=== PATIENT | male | born 1940 | race Caucasian/White ===

== ENCOUNTER 2021-05-28 08:26 | Emergency (ER) | payer BC, MEDICARE ==
--- NOTE | 2021-05-28 08:40 | EDM.PDOC ---
ED HPI GENERAL MEDICAL PROBLEM - General Chief Complaint: Headache Stated Complaint: COVID? Time Seen by Provider: 05/28/21 08:40 Source of Information: Reports: Patient History Limitations: Reports: No Limitations - History of Present Illness INITIAL COMMENTS - FREE TEXT/NARRATIVE: Jarrell, 81-year-old male, presents unaccompanied to the emergency department for screening and treatment of COVID-19. Acknowledges Non-vaccinated status for Covid-19. His was tested confirmed positive last to which he has had direct exposure prior to and since then. He states she presented to the emergency department for evaluation and received monoclonal antibody treatment. This morning she called to the hospital stating her was worse than she was and that he was on his way in for evaluation and treatment. Jarrell states that he been feeling well up until last night when he started to develop some congestion runny nose, accompanied by a headache which has persisted/worsened with no other symptoms since onset. He denies shortness of breath or chest pain. Has had no change in bowel nor bladder. Was able to take his medications this morning and is experience no sequela that limited him presenting to the department by private vehicle unaccompanied. Jarrell is a [facility] patient, thus there are no records available to us. He denies any other contributing factors other than the positive exposure and risk for that. Onset Date: 05/27/21 Onset Time: 18:00 Duration: Hour(s):, Getting Worse Location: Reports: Head, Face Quality: Reports: Pressure Severity: Moderate Improves with: Reports: None Worsens with: Reports: Movement Context: Reports: Sick Contact Associated Symptoms: Reports: Headaches, Loss of Appetite. Denies: Confusion, Chest Pain, cough w sputum Headache Pain Score (Numeric/FACES): 5 - Related Data Allergies Allergy/AdvReac Type Severity Reaction Status Date / Time meperidine HCl [From Demerol] Allergy Dizziness Verified 05/28/21 09:04 Home Meds: Home Meds Olmesartan Medoxomil 20 mg PO DAILY 05/28/21 [History] atorvaSTATin Calcium [Atorvastatin Calcium] 10 mg pe PO DAILY 05/28/21 [History] Past Medical History HEENT History: Reports: Impaired Vision Cardiovascular History: Reports: Hypertension Respiratory History: Reports: None Musculoskeletal History: Reports: Arthritis, Neck Pain, Chronic, Other (See Below) Other Musculoskeletal History: 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, stenosis Neurological History: Reports: Headaches, Chronic Psychiatric History: Reports: None Endocrine/Metabolic History: Reports: None Oncologic (Cancer) History: Reports: Basal Cell Carcinoma Dermatologic History: Reports: Other (See Below) Other Dermatologic History: basal cell skin removal - Infectious Disease History Infectious Disease History: Reports: Chicken Pox, Measles, Mumps - Past Surgical History HEENT Surgical History: Reports: Tonsillectomy, Other (See Below) (Large mass removed Left neck) Social & Family History - Family History Family Medical History: No Pertinent Family History ED ROS GENERAL - Review of Systems Review Of Systems: See Below Constitutional: Reports: Malaise HEENT: Reports: No Symptoms Respiratory: Reports: No Symptoms Cardiovascular: Reports: No Symptoms Endocrine: Reports: No Symptoms GI/Abdominal: Reports: No Symptoms : Reports: No Symptoms Musculoskeletal: Reports: Neck Pain Skin: Reports: No Symptoms Neurological: Reports: No Symptoms Psychiatric: Reports: No Symptoms Hematologic/Lymphatic: Reports: No Symptoms Immunologic: Reports: No Symptoms ED EXAM, GENERAL - Physical Exam Exam: See Below Free Text/Narrative:: Alert, oriented, in no acute distress. There is no evidence of cyanosis nor pallor. HEENT is negative the discharge nor deformity. PERRLA no icterus no injection EOM intact. Not truly light sensitive. Mild cerumen in the canals with no obstruction no evidence of tympanic membrane involvement. [place] moist mucous membranes nasal and oral with no erythema nor exudate noted. Neck is soft supple no rigidity, no lymphadenopathy, there is no carotid bruit auscultated bilateral assessment. There is a scar to the left lateral neck from where the shoe states mass had been removed. Thorax is clear mildly diminished more so left base than right with no wheezes nor crackles. Cardiac is S1-S2 I do not appreciate any murmur. Abdomen is soft bowel sounds are present no tenderness is noted. No flank pain is noted. Motion of the extremities is intact negative calf tenderness to Homans sign maneuvering There is no edema present. rectal deferred. #1 Interpretation EKG Date: 05/28/21 Time: 09:02 Rhythm: NSR Rate (Beats/Min): 84 [place]: Normal (no comparison available) P-Wave: Present QRS: Normal ST-T: Normal QT: Normal Comparison: NA - No Prior EKG Course - Vital Signs Last Recorded V/S: Last Vital Signs Temp 98.4 F 05/28/21 10:00 Pulse 82 05/28/21 10:30 Resp 18 05/28/21 10:30 BP 152/88 H 05/28/21 10:30 Pulse Ox 97 05/28/21 10:30 - Orders/Labs/Meds Orders: Active Orders 24 hr Category Date Time Status Peripheral IV Care [RC] . DIRECTED Care 05/28/21 08:48 Active Sodium Chloride 0.9% [Saline Flush] Med 05/28/21 08:47 Active 10 ml FLUSH Q8HR PRN Peripheral IV Insertion Adult [OM.PC] Stat Oth 05/28/21 08:48 Ordered EKG 12 Lead [EK] Stat Ther 05/28/21 08:48 Ordered Medication Orders Sodium Chloride (Sodium Chloride 0.9% 10 Ml Syringe) 10 ml FLUSH Q8HR PRN PRN Reason: keep vein open Labs: Laboratory Tests 05/28/21 05/28/21 05/28/21 Range/Units 08:38 09:20 09:20 WBC 5.10 (5.00-10.00) 10^3/uL RBC 4.70 (4.50-6.00) 10^6/uL Hgb 14.4 (13.0-17.0) g/dL Hct 42.1 (40.0-52.0) % MCV 89.6 (82.0-92.0) fL MCH 30.6 (27.0-31.0) pg MCHC 34.2 (32.0-36.0) g/dL RDW 12.6 (11.5-14.5) % Plt Count 185 (150-400) 10^3/uL MPV 9.8 (7.4-10.4) fL Immature Gran % (Auto) 0.2 (0.0-5.0) % Neut % (Auto) 76.8 H (50.0-70.0) % Lymph % (Auto) 6.5 L (20.0-40.0) % [place] % (Auto) 14.7 H (2.0-8.0) % Eos % (Auto) 1.4 (1.0-3.0) % Baso % (Auto) 0.4 (0.0-1.0) % Neut # (Auto) 3.92 (2.50-7.00) 10^3/uL Lymph # (Auto) 0.33 L (1.00-4.00) 10^3/uL [place] # (Auto) 0.75 (0.10-0.80) 10^3/uL Eos # (Auto) 0.07 L (0.10-0.30) 10^3/uL Baso # (Auto) 0.02 (0.00-0.10) 10^3/uL Immature Gran # (Auto) 0.01 (0.00-0.50) 10^3/uL D-Dimer, Quantitative 262 (<400) ng/mL Sodium (136-145) mmol/L Potassium (3.5-5.1) mmol/L Chloride (98-107) mmol/L Carbon Dioxide (21.0-32.0) mmol/L Anion Gap (5-15) mmol/L BUN (7-18) mg/dL Creatinine (0.51-1.17) mg/dL Est Cr Clr Drug Dosing mL/min Estimated GFR (MDRD) mL/min Glucose (70-140) mg/dL Lactic Acid (0.4-2.0) mmol/L Calcium (8.7-10.3) mg/dL Total Bilirubin (0.2-1.0) mg/dL AST (15-37) U/L ALT (14-63) U/L Alkaline Phosphatase (46-116) U/L Total Protein (6.4-8.2) g/dL Albumin (3.40-5.00) g/dL Influenza Type A RNA Negative (NEGATIVE) Influenza Type B RNA Negative (NEGATIVE) SARS-CoV-2 RNA (MARI) Positive H (NEGATIVE) 05/28/21 05/28/21 Range/Units 09:20 09:20 WBC (5.00-10.00) 10^3/uL RBC (4.50-6.00) 10^6/uL Hgb (13.0-17.0) g/dL Hct (40.0-52.0) % MCV (82.0-92.0) fL MCH (27.0-31.0) pg MCHC (32.0-36.0) g/dL RDW (11.5-14.5) % Plt Count (150-400) 10^3/uL MPV (7.4-10.4) fL Immature Gran % (Auto) (0.0-5.0) % Neut % (Auto) (50.0-70.0) % Lymph % (Auto) (20.0-40.0) % [place] % (Auto) (2.0-8.0) % Eos % (Auto) (1.0-3.0) % Baso % (Auto) (0.0-1.0) % Neut # (Auto) (2.50-7.00) 10^3/uL Lymph # (Auto) (1.00-4.00) 10^3/uL [place] # (Auto) (0.10-0.80) 10^3/uL Eos # (Auto) (0.10-0.30) 10^3/uL Baso # (Auto) (0.00-0.10) 10^3/uL Immature Gran # (Auto) (0.00-0.50) 10^3/uL D-Dimer, Quantitative (<400) ng/mL Sodium 141 (136-145) mmol/L Potassium 4.1 (3.5-5.1) mmol/L Chloride 102 (98-107) mmol/L Carbon Dioxide 27.1 (21.0-32.0) mmol/L Anion Gap 16.0 H (5-15) mmol/L BUN 20 H (7-18) mg/dL Creatinine 0.94 (0.51-1.17) mg/dL Est Cr Clr Drug Dosing 66.76 mL/min Estimated GFR (MDRD) > 60 mL/min Glucose 97 (70-140) mg/dL Lactic Acid 1.4 (0.4-2.0) mmol/L Calcium 8.9 (8.7-10.3) mg/dL Total Bilirubin 0.5 (0.2-1.0) mg/dL AST 20 (15-37) U/L ALT 34 (14-63) U/L Alkaline Phosphatase 58 (46-116) U/L Total Protein 6.8 (6.4-8.2) g/dL Albumin 3.79 (3.40-5.00) g/dL Influenza Type A RNA (NEGATIVE) Influenza Type B RNA (NEGATIVE) SARS-CoV-2 RNA (MARI) (NEGATIVE) Meds: Medications Generic Name Dose Route Start Last Admin Trade Name David PRN Reason Stop Dose Admin Sodium Chloride 10 ml 05/28/21 08:47 Sodium Chloride 0.9% 10 Ml Syringe FLUSH Q8HR PRN keep vein open Departure - Departure Time of Disposition: 10:51 Disposition: Home, Self-Care 01 Condition: Fair Clinical Impression: COVID-19 determined by clinical diagnostic criteria, Headache - Discharge Information *PRESCRIPTION DRUG MONITORING PROGRAM REVIEWED*: Not Applicable *COPY OF PRESCRIPTION DRUG MONITORING REPORT IN PATIENT BECKA: Not Applicable Instructions: Frequently Asked Questions About COVID-19 Vaccination - [facility] (01/09/2021), General Headache Without Cause, [id number], COVID-19: Quarantine vs. Isolation - [facility] (08/31/2020), Dehydration, Elderly, Lash-hn-Otji Referrals: PCP,Unknown [Primary Care Provider] - Forms: ED Department Discharge Additional Instructions: Testing returns showing positive for the SARS-CoV-2 RNA. ( COVID-19) The remainder of your blood work is all within normal limits. There is no evidence of infection nor anemia. Your electrolytes are all within normal limits as well as your kidney function, although you could drink more water as your BUN is slightly elevated at 20. Chest x-ray shows no evidence of infection/infiltrate. Contact your clinic/provider to discuss the onset of your symptoms being yesterday the 27 May 2021 and the positive test findings this morning of which you have been given a copy. You may be able to conduct a phone, video, telemedicine, or personal visit at their discretion. They would then determine with your health history and the findings today if you are a candidate for the REGEN-COV and discuss risk and benefits with you. They may order the infusion here at [facility], or at an infusion facility of their choice in agreement with you. A copy of the orders would be faxed to us or hand carried with you. Isolation and restricted exposure is highly recommended as you are considered contagious up to 10 days post symptom development. The use of a mask and good hygiene is recommended. Consideration for vaccination once you are eligible may be given. Sepsis Event Note (ED) - Focused Exam Vital Signs: Vital Signs Temp Pulse Resp BP Pulse Ox 05/28/21 10:30 82 18 152/88 H 97 05/28/21 10:00 98.4 F 80 16 129/75 97 05/28/21 09:00 96 16 166/79 H 98 05/28/21 08:30 97.6 F 103 H 18 165/95 H 98 - Problem List & Annotations (1) Congestion of respiratory tract SNOMED Code(s): 215463449 Code(s): J98.8 - OTHER SPECIFIED RESPIRATORY DISORDERS Status: Acute Priority: High Current Visit: Yes (2) Exposure to COVID-19 virus SNOMED Code(s): 918744011 Code(s): Z20.822 - CONTACT WITH AND (SUSPECTED) EXPOSURE TO COVID-19 St atus: Acute Priority: High Current Visit: Yes (3) Headache SNOMED Code(s): 48615835 Code(s): R51.9 - HEADACHE, UNSPECIFIED Status: Chronic Priority: Medium Current Visit: Yes Qualifiers: Headache type: unspecified Headache chronicity pattern: chronic headache Intractability: not intractable Qualified Code(s): R51.9 - Headache, unspecified; G89.29 - Other chronic pain (4) COVID-19 determined by clinical diagnostic criteria SNOMED Code(s): 412293338, 067951555 Code(s): U07.1 - COVID-19 Status: Acute Current Visit: Yes - Problem List Review Problem List Initiated/Reviewed/Updated: Yes - My Orders Last 24 Hours: My Active Orders 05/28/21 08:47 Sodium Chloride 0.9% [Saline Flush] 10 ml FLUSH Q8HR PRN 05/28/21 08:48 Peripheral IV Care [RC] . DIRECTED Peripheral IV Insertion Adult [OM.PC] Stat EKG 12 Lead [EK] Stat - Assessment/Plan Last 24 Hours: My Active Orders 05/28/21 08:47 Sodium Chloride 0.9% [Saline Flush] 10 ml FLUSH Q8HR PRN 05/28/21 08:48 Peripheral IV Care [RC] . DIRECTED Peripheral IV Insertion Adult [OM.PC] Stat EKG 12 Lead [EK] Stat Plan: Testing returns showing positive for the SARS-CoV-2 RNA. ( COVID-19) The remainder of your blood work is all within normal limits. There is no evidence of infection nor anemia. Your electrolytes are all within normal limits as well as your kidney function, although you could drink more water as your BUN is slightly elevated at 20. Chest x-ray shows no evidence of infection/infiltrate. Contact your clinic/provider to discuss the onset of your symptoms being yesterday the 27 May 2021 and the positive test findings this morning of which you have been given a copy. You may be able to conduct a phone, video, telemedicine, or personal visit at their discretion. They would then determine with your health history and the findings today if you are a candidate for the REGEN-COV and discuss risk and benefits with you. They may order the infusion here at [facility], or at an infusion facility of their choice in agreement with you. A copy of the orders would be faxed to us or hand carried with you. Isolation and restricted exposure is highly recommended as you are considered contagious up to 10 days post symptom development. The use of a mask and good hygiene is recommended. Consideration for vaccination once you are eligible may be given.
[2021-05-28] MEDS ORDERED: Sodium Chloride 0.9% 10 ML Syringe FLUSH PRN (08:47)
[2021-05-28 10:02] LABS: CHLORIDE,CL 102 mmol/L (98-107); SODIUM,NA 141 mmol/L (136-145)
[2021-05-28 10:16] LABS: CORONAVIRUS COVID-19 NAA POSITIVE (NEGATIVE)
--- NOTE | 2021-05-28 10:53 | CR ---
[id number] RAD/RAD Chest PA or AP 1V EXAM: SINGLE VIEW CHEST. INDICATION: COVID EXPOSURE CONGESTION COMPARISON: NO PREVIOUS SIMILAR EXAM IS AVAILABLE FINDINGS: The lungs are clear The cardiomediastinal contour is normal IMPRESSION: NO PNEUMONIA CURRENTLY Minh Nicole MD 05/28/21 [id number] Thank you for allowing us to participate in the care of your patient.
== END 2021-05-28 11:10 | disposition home or self-care (01) ==
LOC: KA.ED 08:26 → MERGE 08:26 → KA.ED 11:10
DX: U07.1 COVID-19 (principal); I10 Essential (primary) hypertension; Z88.5 Allergy status to narcotic agent
CPT/HCPCS: 0240U; 36415; 71045; 80053; 83605; 85025; 85379; 93005; 99284; 99284-25